=== PATIENT | female | born 1945 | race African-American/Black ===

== ENCOUNTER → 2021-01-27 | Outpatient (CLI) | payer OTHER ==
[~2021-01-27] MED LIST: BUPIVACAINE MPF 0.5% 10 ML VIAL. INT ART ONE; IOHEXOL 300 MG/ML 50 ML VIAL. INT ART ONE; LIDOCAINE 1% Multi-Dose 20 ML VIAL. ID ONE; methylPREDNISolone ACETATE 40 MG/ML VIAL. INT ART ONE
--- NOTE | 2021-01-27 13:09 | KCIC ---
ADDENDUM #1 Number of fluoroscopic images: 1 Electronically signed by: Mario Alberto Hitchcock DO (02/17/2021 12:04 PM) [id number] ORIGINAL REPORT FLUOROSCOPICALLY GUIDED LEFT HIP THERAPEUTIC INJECTION 1. INDICATION: The patient is a 75 years old Female who presented with left hip pain and arthritis. 2. CONSENT: The risks, benefits, treatment options, potential complications and personnel to be invo lved were discussed (including the risks of radiation exposure, instruments to be used, contrast and anesthesia administration) with the patient. All questions were answered and consent was obtained. Th e patient indicated willingness to proceed. 3. GENERAL: a) Medication Reconciliation: The patient's medications and allergies were reviewed in the [facility] medical record and reconciled to the proposed procedure/treatment. b) Positioning: The patient was placed Supine on the fluoroscopy table. c) The hip was then sterilely prepped and draped. d) Time Out: A time out was performed immediately prior to procedure start with the nursing, anesthes ia and interventional team, correctly identifying the patient name, date of , procedure, anatomy (including marking of site and side), patient position, procedure consent form, relevant diagnostic and radiology test results, antibiotic administration, safety precautions, and procedure-specific equ ipment needs. Procedure Start Time / Timeout Time: 11:50 e) Anesthesia Type: Local anesthesia: 2 mL 1% Lidocaine 4. PROCEDURE: a) Procedure Details: A 20g spinal needle was inserted into the hip joint. 1 mL Omnipaque 300 was in jected to confirm intra-articular placement of needle. Contrast was observed to flow into the intra-a rticular space of the joint without significant resistance. 6 mL of injectate was administered into t he joint. The needle was removed. Images were stored to the permanent digital archive documenting nee dle position. b) Injectate Contents: 2 mL Methylprednisolone (Depo Medrol) 40mg/ml 4 mL 0.5% Bupivacaine (Marcaine,Sensorcaine) c) Estimated Blood Loss: 0 mL RADIATION DOSE: Fluoroscopic Radiation Summary: Fluoro time: 0:09 min:sec POST PROCEDURE: a) Hemostasis: Hemostasis was achieved using light manual compression. b) Procedure End Time: 11:59 c) Conclusion: The patient was discharged from the radiology department in stable condition. COMPLICATIONS: a) Significant Patient Complication: None If other, explain: b) Complications during the procedure: None If other, explain: 5. RESULTS: Medication was injected into the joint. 6. IMPRESSION: SUCCESSFUL FLUOROSCOPICALLY GUIDED THERAPEUTIC INJECTION OF THE LEFT HIP DESCRIBED ABO ITZ. Electronically signed by: Mario Alberto Hitchcock DO (01/27/2021 1:07 PM) [id number]
== END | disposition home or self-care (01) ==
LOC: KCIC 11:18
PROVIDERS: ATTEND Physical Medicine & Rehabilitation
DX: M16.12 Unilateral primary osteoarthritis, left hip (principal)
CPT/HCPCS: 20610; 77002; J1030; J3490; Q9967

== ENCOUNTER → 2021-04-25 | Outpatient (CLI) | payer OTHER ==
[~2021-04-25] MED LIST changes: +BUPIVACAINE MPF 0.5% 10 ML VIAL. IJ ONE; -BUPIVACAINE MPF 0.5% 10 ML VIAL. INT ART ONE; -LIDOCAINE 1% Multi-Dose 20 ML VIAL. ID ONE; +LIDOCAINE 1% Multi-Dose 20 ML VIAL. INJ ONE; -methylPREDNISolone ACETATE 40 MG/ML VIAL. INT ART ONE; +methylPREDNISolone ACETATE 80 MG/ML VIAL. INT ART ONE
--- NOTE | 2021-04-25 16:50 | RAD ---
EXAM: Fluoroscopic guided therapeutic left hip injection. HISTORY: Pain. TECHNIQUE: The risks of the procedure were discussed with the patient and written and verbal consent was obtained. A time out was performed. Fluoroscopic imaging of the left hip was performed and a site overlying the joint space was selected for needle entry. The skin overlying this region was sterilel y prepped, draped and infiltrated with 1% lidocaine. A spinal needle was then advanced into the joint space with fluoroscopic guidance. Appropriate needle tip positioning was confirmed with injection of 3 cc Isovue 300 contrast. The initial image demonstrates extra-articular accumulation of contrast co ntrast. Therefore, the needle was repositioned and intra-articular position was confirmed. Subsequent ly, a solution containing 80 mg Depo-Medrol and 4 cc 0.5 percent bupivacaine was injected into the carey int space. The needle was removed and a sterile bandage was placed at the needle entry site. The tom ent tolerated the procedure without difficulty and was discharged in stable condition. A single fluor oscopic image was obtained for total fluoroscopy time of 0.7 minutes. IMPRESSION: Successful fluoroscopic therapeutic left hip injection. Electronically signed by: Debbie Andujar MD (04/25/2021 4:48 PM) [id number]
--- NOTE | 2021-04-25 16:52 | RAD ---
EXAM: Pelvis and left hip, 2 views. HISTORY: Pain. COMPARISON: None. FINDINGS: A frontal view the pelvis and frog-leg view of the left hip are obtained. There is severe l eft hip joint space narrowing with degenerative subchondral cyst formation, subchondral sclerosis and marginal acetabular and femoral head osteophytosis. There is associated flattening of the superior a rticular aspect of the left femoral head and acetabulum. No cortical collapse is seen. There is mild spurring involving the contralateral hip. There is degenerative change involving the lower lumbar spi ne. IMPRESSION: 1. Severe left hip osteoarthritis with associated remodeling of the superior articular aspect of the acetabulum and femoral head. 2. Mild right hip osteoarthritis. Electronically signed by: Debbie Andujar MD (04/25/2021 4:49 PM) [id number]
== END | disposition home or self-care (01) ==
LOC: RAD 15:41
PROVIDERS: ATTEND Physical Medicine & Rehabilitation
DX: M16.0 Bilateral primary osteoarthritis of hip (principal)
CPT/HCPCS: 20610; 73501; 77002

== ENCOUNTER → 2022-02-16 | Outpatient (CLI) | payer MEDICARE ==
[~2022-02-16] MED LIST changes: -BUPIVACAINE MPF 0.5% 10 ML VIAL. IJ ONE; +CONTRAST GIVEN. MC PRN; +IOHEXOL 300 MG/ML 50 ML VIAL. IJ ONE; -IOHEXOL 300 MG/ML 50 ML VIAL. INT ART ONE; +TRIAMCINOLONE PRES.FREE 40 MG/ML VIAL. INT ART ONE; -methylPREDNISolone ACETATE 80 MG/ML VIAL. INT ART ONE
--- NOTE | 2022-02-18 09:36 | RAD ---
IR ARTHROCENT INT JT ASP/INJ LT History: Pain Technique: Patient was informed of the risks to include pain, infection, bleeding, allergic reaction. All questions were answered. Patient signed a written consent form for left hip injection for pain t herapy. Patient was placed in supine position on the fluoroscopy table. The external skin site overly ing left hip was prepped and draped in the usual sterile fashion. Betadine was utilized for cleansing solution. 1% lidocaine was utilized for local anesthesia to the depth of the bone. 22-gauge spinal n eedle was advanced under fluoroscopy to depth of the bone. Small amount contrast was injected confirm ing intra-articular location. Mixture of 4 cc anesthetic and 80 mg Depo-Medrol were injected during f luoroscopic visualization. Needle was removed. There were no immediate complications. Bandage was dmitri lied. Fluoroscopy time 0.6 minutes Fluoroscopic images: 1. Impression: 1. Successful left hip steroid injection. Electronically signed by: Hero Goss DO (02/18/2022 9:33 AM) [id number]
== END | disposition home or self-care (01) ==
LOC: RAD 09:55
PROVIDERS: ATTEND Physical Medicine & Rehabilitation
DX: M16.12 Unilateral primary osteoarthritis, left hip (principal)
CPT/HCPCS: 20610; 77002

== ENCOUNTER → 2022-02-17 | Outpatient (CLI) | payer MEDICARE ==
[~2022-02-17] MED LIST changes: +BUPIVACAINE MPF 0.5% 10 ML VIAL. IJ ONE
--- NOTE | 2022-03-13 11:41 | RAD ---
IR ARTHROCENT INT JT ASP/INJ LT History: Pain Technique: Patient was informed of the risks to include pain, infection, bleeding, allergic reaction. All questions were answered. Patient signed a written consent form for left hip injection for pain therapy. Patient was placed in supine position on the fluoroscopy table. The external skin site overlying left hip was prepped and draped in the usual sterile fashion. Betadine was utilized for cleansing solution. 1% lidocaine was utilized for local anesthesia to the depth of the bone. 22-gauge spinal needle was advanced under fluoroscopy to depth of the bone. Small amount contrast was injected confirming intra- articular location. Mixture of 4 cc anesthetic and 80 mg Depo-Medrol were injected during fluoroscopic visualization. Needle was removed. There were no immediate complications. Bandage was applied. Fluoroscopy time 0.6 minutes Fluoroscopic images: 1. Impression: 1. Successful left hip steroid injection. Electronically signed by: Hero Goss DO (02/18/2022 9:33 AM) [id number]
== END | disposition home or self-care (01) ==
LOC: RAD 13:04
PROVIDERS: ATTEND Physical Medicine & Rehabilitation
DX: M16.12 Unilateral primary osteoarthritis, left hip (principal)
CPT/HCPCS: 20610; 77002; J3301; J3490; Q9967